=== PATIENT | female | born 1935 | race Caucasian/White ===

== ENCOUNTER → 2019-09-01 | Outpatient (REF) | payer MEDICARE | LOC: M LAB LCGH 12:02 | DX: Z12.4 Encounter for screening for malignant neoplasm of cervix (principal) ==

== ENCOUNTER → 2021-03-27 | Outpatient (CLI) | payer MEDICARE ==
--- NOTE | 2021-03-27 16:26 | REPMRS ---
Patient History The patient states she had a clinical breast exam in August 2020. Patient is postmenopausal and is nulliparous. Family history of colorectal cancer at age 65 in sister, prostate cancer at age 45 in brother, colorectal cancer at age 59 in mother. Took estrogen for 42 years. Moderna vaccine 10/22/20 left arm. 11/19/20 left arm. Patient states no breast complaints today. Patient has signed MRS History Sheet. Digital Woman Screen Mammo: March 27, 2021 - Exam #: [id number] Bilateral CC and MLO view(s) were taken. Technologist: RT Yadira Prior study comparison: August 29, 2013, bilateral bilat screen digital mammo, performed at [facility] ([facility]). August 27, 2012, bilateral bilat screen digital mammo, performed at [facility] ([facility]). FINDINGS: The breast tissue is heterogeneously dense. This may lower the sensitivity of mammography. Screening. Digital screening (2D) mammography was performed bilaterally in the CC and MLO projections. Additionally, breast tomosynthesis (3D mammography) was performed bilaterally in the CC and MLO projections. Todays exam was compared to the prior exam/exams. By history, the patient has no complaints of a palpable breast abnormality or other significant breast complaints. The breasts are unchanged in size and shape. Once again, dense heterogenous fibroglandular elements are seen bilaterally in a stable appearing pattern but to such a degree that the sensitivity of the mammogram in detecting cancer is decreased.There are no jayce-soft tissue densities or spiculated masses. There is no internal architectural distortion. Once again, stable benign appearing calcifications are seen.There are no suspicious jayce-calcific clusters. Skin thickening or nipple retraction is not present. IMPRESSION: BI-RADS Category 2- Benign Findings. There is no evidence of malignant alteration of the breasts. Followup examination recommended in one year. The Volpara volumetric breast density category is C, the breasts are heterogenously dense which may obscure small masses. This mammogram was read with the assistance of [employer],an FDA approved computer aided detection system for mammography. The lifetime Tyrer-Cuzick score is 0.7 % Due to the density of the breasts or Tyrer Cuzick score of 20% or greater, MRI/whole breast screening ultrasound is warranted. Negative x-ray reports should not delay surgical consultation if a dominant or clinically suspicious mass is present. Not all breast cancers can be identified by mammography. Therefore, we recommend that you continue to perform regular breast self-examination and physical examination and then promptly contact your physician of any concerns or changes. Adenosis and dense breasts may obscure an underlying neoplasm. Assessment: BI-RADS/ACR category 2 mammogram. Benign Findings. Recommendation Routine screening mammogram of both breasts in 1 year. Electronically Signed By: Austyn Mejia DO 03/27/21 [id number]
== END ==
LOC: M WHC 15:21
DX: Z12.31 Encounter for screening mammogram for malignant neoplasm of breast (principal); Z78.0 Asymptomatic menopausal state; Z80.0 Family history of malignant neoplasm of digestive organs; Z80.42 Family history of malignant neoplasm of prostate

== ENCOUNTER → 2021-12-18 | Outpatient (REF) | payer MEDICARE | LOC: M LAB REF 16:31 | PROVIDERS: ATTEND Internal Medicine | DX: R31.9 Hematuria, unspecified (principal) ==

== ENCOUNTER → 2021-12-26 | Outpatient (CLI) | payer MEDICARE | LOC: M WHC 09:39 | DX: R31.9 Hematuria, unspecified (principal) ==

== ENCOUNTER → 2022-03-26 | Outpatient (REF) | payer MEDICARE ==
[2022-03-26 17:27] LABS: APPEARANCE, URINE CLEAR (CLEAR); BACTERIA, URINE AUTO 3+ (NEGATIVE); BILIRUBIN, URINE AUTO NEGATIVE (NEGATIVE); BLOOD, URINE BLOOD 2+ (NEGATIVE); COLOR, URINE YELLOW (YELLOW); GLUCOSE, URINE (UA) AUTO NEGATIVE (NEGATIVE); KETONE, URINE AUTO NEGATIVE (NEGATIVE); LEUKOCYTE ESTERASE, URINE AUTO NEGATIVE (NEGATIVE); NITRITE, URINE AUTO NEGATIVE (NEGATIVE); PROTEIN, URINE AUTO NEGATIVE (NEGATIVE); RBC, URINE AUTO 1 /HPF (0-3); SQUAMOUS EPITHELIAL CELL UR AU 1 /HPF (0-6); UROBILINOGEN, URINE AUTO 0.2 mg/dL (0.0-2.0); WBC, URINE AUTO 1 /HPF (0-3)
== END ==
LOC: M SMT 16:36
PROVIDERS: ATTEND Nurse Practitioner Women's Health
DX: R31.0 Gross hematuria (principal)

== ENCOUNTER → 2022-04-17 | Outpatient (CLI) | payer MEDICARE ==
[~2022-04-17] MED LIST: ISOVUE-370 76% 100ML VIAL As Ordered ONE
== END ==
LOC: M RAD 16:50
PROVIDERS: ATTEND Nurse Practitioner Women's Health
DX: N28.89 Other specified disorders of kidney and ureter (principal); R31.0 Gross hematuria; E27.8 Other specified disorders of adrenal gland
CPT/HCPCS: 74178; Q9967

== ENCOUNTER → 2023-12-15 | Outpatient (CLI) | payer MEDICARE | LOC: M WHC 09:53 | PROVIDERS: ATTEND Internal Medicine | DX: Z12.31 Encounter for screening mammogram for malignant neoplasm of breast (principal) ==

== ENCOUNTER → 2025-01-03 | Outpatient (CLI) | payer MEDICARE | LOC: M WHC 12:48 | PROVIDERS: ATTEND Internal Medicine | DX: Z12.31 Encounter for screening mammogram for malignant neoplasm of breast (principal); Z13.820 Encounter for screening for osteoporosis; M85.851 Other specified disorders of bone density and structure, right thigh; R92.333 Mammographic heterogeneous density, bilateral breasts; M85.852 Other specified disorders of bone density and structure, left thigh ==